=== PATIENT | female | born 1960 | race Caucasian/White ===

== ENCOUNTER 2017-10-31 13:44 | Emergency (ER) | payer MEDICARE ==
[~2017-10-31] VITALS: Ht 162.6 cm; Wt 128.2 kg
[~2017-10-31 13:44] MED LIST: ALPR0.5T6 PO; ATEN50TA41 PO; BETA15CR3 TP; CELE200C PO; CHOL2000 PO; CYCL-259 PO; DOCU100C33 PO; DULO60CA7 PO; ESZO3TAB28 PO; GLYB5TAB3 PO; HYDR-3307 PO; IBUP-1223 PO; INSU100C SQ-INSULIN; INSU100I29 SQ; LEVA15HF4 INH; LEVO125T5 PO; LIRA0.6P SQ-INSULIN; LISI-167 PO; LORA10TA75 PO; METF10002 PO; METH750T2 PO; METH750T87 PO; NIAC10002 PO; OXYM10TA19 PO; PANT40TA3 PO; POTA10TA PO; PRAV40TA2 PO; PREG50CA PO; RANI300C PO; VERA120T5 PO; ZOLP10TA PO; [UNRECOGNIZED DRUG - OTHER] PO; [UNRECOGNIZED DRUG - REMARK] PO; [UNRECOGNIZED DRUG - REMARK] PO
[2017-10-31] MEDS ORDERED: ALBUTEROL/IPRATROPIUM 2.5MG/0.5MG, 3 ML ONE (14:13)
[2017-10-31] MEDS ORDERED: SODIUM CHLORIDE FLUSH 10ML SYR IVF ONE (14:30)
[2017-10-31 15:06] LABS: BLOOD UREA NITROGEN 8 mg/dL (7-18)
[2017-10-31 15:08] LABS: HEMATOCRIT 40.4 % (34.6-47.8); HEMOGLOBIN 13.1 g/dL (11.7-16.4); WHITE BLOOD COUNT 10.4 x10^3/uL (3.4-10)
[2017-10-31 15:11] LABS: ASPARTATE AMINO TRANSFERASE 17 U/L (15-37)
[2017-10-31 15:12] LABS: IS PT STATUS REG ER OR PRE ER? YES
[2017-10-31] MEDS ORDERED: OMNIPAQUE 350 MG/ML, 100ML BOTTLE ONE (16:09)
[2017-10-31 17:30] VITALS: BP 140/69
== END 2017-10-31 17:32 | disposition home or self-care (01) ==
LOC: ED 15:30
DX: M54.6 Pain in thoracic spine (principal); R06.00 Dyspnea, unspecified; I10 Essential (primary) hypertension; E11.9 Type 2 diabetes mellitus without complications; M19.90 Unspecified osteoarthritis, unspecified site; E78.5 Hyperlipidemia, unspecified; E03.9 Hypothyroidism, unspecified; Z86.711 Personal history of pulmonary embolism; Z90.49 Acquired absence of other specified parts of digestive tract; Z90.710 Acquired absence of both cervix and uterus; Z88.8 Allergy status to other drugs, medicaments and biological substances; Z87.891 Personal history of nicotine dependence
CPT/HCPCS: 36415; 71010; 71275; 80053; 83605; 83880; 84443; 84484; 85025; 87040; 93005; 94640; 99285; Q9967

== ENCOUNTER 2018-02-20 18:07 | Emergency (ER) | payer MEDICARE ==
[~2018-02-20] VITALS: Ht 162.6 cm; Wt 130.0 kg
[2018-02-20] MEDS ORDERED: CHOL500050 PO (18:24)
[2018-02-20] MEDS ORDERED: CANA1TAB4 PO (18:24)
[2018-02-20] MEDS ORDERED: INSU100C5 SQ-INSULIN (18:24)
[2018-02-20] MEDS ORDERED: INSU100I32 SC (18:24)
[2018-02-20] MEDS ORDERED: NIAC500C3 PO (18:24)
[2018-02-20] MEDS ORDERED: ASPI-496 PO (18:29)
[2018-02-20] MEDS ORDERED: MULT-717 PO (18:29)
[2018-02-20] MEDS ORDERED: LEVO125T5 PO (18:29)
[2018-02-20] MEDS ORDERED: CLON0.1T PO (18:35)
[2018-02-20] MEDS ORDERED: IBUP-1223 PO (18:35)
[2018-02-20] MEDS ORDERED: CALC1TAB68 PO (18:35)
[2018-02-20] MEDS ORDERED: FLUT12AE INH (18:35)
[2018-02-20] MEDS ORDERED: CLON0.5T PO (18:35)
[2018-02-20] MEDS ORDERED: PROPOFOL 10 MG/ML, 20ML ONE ×2 (18:42→19:23)
[2018-02-20] MEDS ORDERED: PROPOFOL 10 MG/ML, 20ML IVPush ONE (19:00)
[2018-02-20] MEDS ORDERED: ONDANSETRON 2MG/ML, 2ML ONE (19:00)
[2018-02-20] MEDS ORDERED: ONDANSETRON 2MG/ML, 2ML IVPush ONE (19:00)
[2018-02-20 20:51] VITALS: BP 125/60
== END 2018-02-20 21:00 | disposition home or self-care (01) ==
LOC: ED 19:12
DX: T18.128A Food in esophagus causing other injury, initial encounter (principal); E11.9 Type 2 diabetes mellitus without complications; I10 Essential (primary) hypertension; E78.5 Hyperlipidemia, unspecified; E03.9 Hypothyroidism, unspecified; M19.90 Unspecified osteoarthritis, unspecified site; Z86.711 Personal history of pulmonary embolism; Z90.49 Acquired absence of other specified parts of digestive tract; Z90.710 Acquired absence of both cervix and uterus; Z87.891 Personal history of nicotine dependence; X58.XXXA Exposure to other specified factors, initial encounter; Y93.9 Activity, unspecified; Y92.89 Other specified places as the place of occurrence of the external cause; Y99.8 Other external cause status
CPT/HCPCS: 43247; 93005; 96374; 99152; 99153; 99285; J2405; 88305

== ENCOUNTER 2018-04-10 09:04 | Day surgery (SDC) | payer MEDICARE ==
[~2018-04-10] VITALS: Ht 162.6 cm; Wt 126.5 kg
[~2018-04-10 09:04] MED LIST changes: +ASPI-496 PO; +CALC1TAB68 PO; +CANA1TAB4 PO; +CHOL500050 PO; +CLON0.1T PO; +CLON0.5T PO; +FLUT12AE INH; +INSU100C5 SQ-INSULIN; +INSU100I32 SC; +MULT-717 PO; +NIAC500C3 PO
[2018-04-10 09:37] VITALS: BP 137/80
[2018-04-10] MEDS ORDERED: LACTATED RINGERS 1,000 ML IV SCH (09:42)
[2018-04-10] MEDS ORDERED: LIDOCAINE-MPF 1%, 2ML ONE (09:47)
[2018-04-10] MEDS ORDERED: LIDOCAINE-MPF 1%, 2ML INFIL ONE (10:00)
[2018-04-10] MEDS ORDERED: SOLI10TA2 PO (10:14)
[2018-04-10] MEDS ORDERED: OMEP40CA6 PO (10:14)
[2018-04-10 10:26] LABS: ALANINE AMINOTRANSFERASE 17 U/L (12-78); ALBUMIN 3.5 g/dL (3.4-5.0); ANION GAP 8 mmol/L (5-15); CALCIUM 8.6 mg/dL (8.5-10.1); CHLORIDE 107 mmol/L (98-107); CREATININE 0.59 mg/dL (0.55-1.02)
[2018-04-10 10:28] LABS: ALKALINE PHOSPHATASE 87 U/L (45-117); BILIRUBIN,TOTAL 0.4 mg/dL (0.2-1.0); TOTAL PROTEIN 6.9 g/dL (6.4-8.2)
[2018-04-10] MEDS ORDERED: METH750T87 PO (10:31)
[2018-04-10] MEDS ORDERED: MIDAZOLAM 1 MG/ML, 2ML ONE (10:34)
[2018-04-10] MEDS ORDERED: PROPOFOL 50 ML ONE (10:34)
[2018-04-10] MEDS ORDERED: EPHEDRINE 50 MG/ML, 1ML IVPush PRN (12:00)
[2018-04-10] MEDS ORDERED: ALBUTEROL/IPRATROPIUM 2.5MG/0.5MG, 3 ML NPPB PRN (12:00)
[2018-04-10] MEDS ORDERED: OXYcodone 5 MG/5 ML ORAL.SOL UDC PO PRN (12:00)
[2018-04-10] MEDS ORDERED: ONDANSETRON ODT 8 MG PO PRN (12:00)
[2018-04-10] MEDS ORDERED: METOPROLOL 1 MG/ML, 5ML IV PRN (12:00)
[2018-04-10] MEDS ORDERED: ALBUTEROL SULFATE 2.5 MG/3 ML NPPB PRN (12:00)
[2018-04-10] MEDS ORDERED: KETOROLAC 30 MG/1 ML IV PRN (12:00)
[2018-04-10] MEDS ORDERED: hydrALAzine 20 MG/ML, 1ML IV PRN (12:00)
[2018-04-10] MEDS ORDERED: PROMETHAZINE 25 MG/ML, 1ML IV PRN (12:00)
[2018-04-10] MEDS ORDERED: ACETAMINOPHEN 325 MG TABLET PO PRN (12:00)
[2018-04-10] MEDS ORDERED: HYDROcodone/APAP 7.5-325MG/15ML UDC PO PRN (12:00)
[2018-04-10] MEDS ORDERED: LABETALOL 5MG/ML, 20ML IV PRN (12:00)
[2018-04-10] MEDS ORDERED: FENTANYL PF 100 MCG/2ML IV PRN (12:00)
== END 2018-04-10 12:55 ==
LOC: OUT 09:04
PROVIDERS: ATTEND Internal Medicine Geriatric Medicine
DX: K29.50 Unspecified chronic gastritis without bleeding (principal); K31.89 Other diseases of stomach and duodenum; F41.9 Anxiety disorder, unspecified; E11.9 Type 2 diabetes mellitus without complications; I10 Essential (primary) hypertension; E03.9 Hypothyroidism, unspecified; F32.9 Major depressive disorder, single episode, unspecified; E89.0 Postprocedural hypothyroidism; Z87.39 Personal history of other diseases of the musculoskeletal system and connective tissue; Z87.01 Personal history of pneumonia (recurrent); Z98.890 Other specified postprocedural states; Z90.710 Acquired absence of both cervix and uterus
CPT/HCPCS: 36415; 43239; 43248; 80053; 82962; 88305; J2250; J2704; J3490; J7120

== ENCOUNTER → 2019-04-16 | Outpatient (CLI) | payer MEDICARE ==
[~2019-04-16] MED LIST changes: -CLON0.1T PO; +CLON0.1T22 PO; +OMEP40CA6 PO; +SOLI10TA2 PO
== END | disposition home or self-care (01) ==
LOC: RAD 10:56
PROVIDERS: ATTEND Internal Medicine Cardiovascular Disease
DX: R06.02 Shortness of breath (principal)
CPT/HCPCS: 71045; 78582; A9540; A9558

== ENCOUNTER → 2019-05-02 | Outpatient (CLI) | payer MEDICARE | END | disposition home or self-care (01) | LOC: CVU 11:10 | PROVIDERS: ATTEND Internal Medicine Cardiovascular Disease | DX: I08.1 Rheumatic disorders of both mitral and tricuspid valves (principal); I26.09 Other pulmonary embolism with acute cor pulmonale; I10 Essential (primary) hypertension | CPT/HCPCS: 0399T; 93306 ==

== ENCOUNTER 2020-03-28 09:39 | Observation (INO) | payer MEDICARE ==
[~2020-03-28] VITALS: Ht 162.6 cm; Wt 119.7 kg
[~2020-03-28 09:39] MED LIST changes: +APIX5TAB PO; +ATOR-2 PO; +CEPH-368 PO; +FLUT9.9S INH; +HYDR-3246 PO; -HYDR-3307 PO; +HYDR2TAB29 PO; +LEVA15HF5 IH; +OMEP40CA42 PO; -OMEP40CA6 PO; +TOPI50TA8 PO; +VERA120T13 PO; -VERA120T5 PO; +VITA100022 PO
[2020-03-28 11:02] LABS: BASOPHILS # (AUTO) 0.07 x10^3/uL (0-0.1); BASOPHILS % (AUTO) 1 % (0-1); EOSINOPHILS # (AUTO) 0.27 x10^3/uL (0-0.4); EOSINOPHILS % (AUTO) 3 % (1-7); LYMPHOCYTES # (AUTO) 2.94 x10^3/uL (1-3.4); LYMPHOCYTES % (AUTO) 33 % (22-44); MD NO; MEAN CORPUSCULAR HEMOGLOBIN 24.6 pg (27.0-34.8); MEAN CORPUSCULAR HGB CONC 31.2 g/dL (32.4-35.8); MEAN CORPUSCULAR VOLUME 78.6 fL (80-100); MEAN PLATELET VOLUME 7.1 fL (7.4-10.4); MONOCYTES # (AUTO) 0.63 x10^3/uL (0.2-0.8); MONOCYTES % (AUTO) 7 % (2-9); NEUTROPHILS # (AUTO) 5.04 x10^3/uL (1.8-6.8); NEUTROPHILS % (AUTO) 56 % (42-75); PLATELET COUNT 491 x10^3/uL (130-400); RED BLOOD COUNT 4.51 x10^6/uL (3.82-5.3); RED CELL DISTRIBUTION WIDTH 20.1 % (9.6-15.2)
[2020-03-28 11:18] LABS: ALANINE AMINOTRANSFERASE 17 U/L (12-78); ALBUMIN 3.4 g/dL (3.4-5.0); ANION GAP 6 mmol/L (5-15); CALCIUM 8.6 mg/dL (8.5-10.1); CHLORIDE 111 mmol/L (98-107)
[2020-03-28 11:20] LABS: ALKALINE PHOSPHATASE 107 U/L (45-117); BILIRUBIN,TOTAL 0.3 mg/dL (0.2-1.0); CREATININE 0.72 mg/dL (0.55-1.02); TOTAL PROTEIN 6.8 g/dL (6.4-8.2)
--- NOTE | 2020-03-28 11:30 | NUR ---
STEADY AMBULATION TO BATHROOM WITH WALKER
--- NOTE | 2020-03-28 12:18 | NUR ---
PT TO IMAGING
[2020-03-28] MEDS ORDERED: PROCHLORPERAZINE 5 MG/ML, 2ML IM ONE (13:00)
[2020-03-28] MEDS ORDERED: DIPHENHYDRAMINE 50 MG/ML, 1ML IV ONE (13:00)
[2020-03-28] MEDS ORDERED: PROCHLORPERAZINE 5 MG/ML, 2ML ONE (13:05)
[2020-03-28] MEDS ORDERED: DIPHENHYDRAMINE 50 MG/ML, 1ML ONE (13:05)
[2020-03-28] MEDS ORDERED: ACETAMINOPHEN 325 MG TABLET PO PRN (13:30)
[2020-03-28] MEDS ORDERED: hydrALAzine 20 MG/ML, 1ML IVPush PRN (13:30)
--- NOTE | 2020-03-28 13:32 | NUR ---
patient resting in ER [facility] with call light in reach. awaiting in patient bed and mri.
--- NOTE | 2020-03-28 13:32 | NUR ---
- [facility] phone - [phone] Cell - [phone]
--- NOTE | 2020-03-28 13:49 | NUR ---
Pt to MRI
--- NOTE | 2020-03-28 14:29 | NUR ---
Pt having anyi consult via [facility]
--- NOTE | 2020-03-28 16:27 | NUR ---
Patient resting in gurney. Call light with in reach. Awaiting in patient bed.
--- NOTE | 2020-03-28 18:04 | NUR ---
No change in status. Patient given food tray. Awaiting inpatient bed. Call light in reach.
--- NOTE | 2020-03-28 18:43 | NUR ---
Pt up to bathroom with stand by assist. Water given. Call light within reach.
--- NOTE | 2020-03-28 18:54 | NUR ---
REPORT FROM RADHA PRIEST, ASSUMING CARE OF PT AT THIS TIME
--- NOTE | 2020-03-28 19:30 | NUR ---
PT RESTING ON ALEIDA NARANJO AT THIS TIME SPEECH CLEAR AND APPROPRIATE.
--- NOTE | 2020-03-28 20:14 | NUR ---
PT RESTING ON ALEIDA NARANJO, PT ABLE TO CONTROL TV NO ASSIST REQUIRED AND SPEAKS CLEARLY. NO NEEDS AT THIS TIME
--- NOTE | 2020-03-28 20:57 | NUR ---
REPORT TO CEDRIC RN, PT READY FOR TRANSPORT TO HOSPITAL ROOM
[2020-03-28 22:47] VITALS: BP 143/72
[2020-03-29 01:06] VITALS: BP 102/51
[2020-03-29] MEDS ORDERED: PRAV40TA2 PO (04:29)
[2020-03-29] MEDS ORDERED: LIRA0.6P2 SQ (04:29)
[2020-03-29] MEDS ORDERED: VERA240T10 PO (04:29)
[2020-03-29] MEDS ORDERED: DULO60CA56 PO (04:29)
[2020-03-29] MEDS ORDERED: ERGO500018 PO (04:29)
[2020-03-29] MEDS ORDERED: ATEN50TA41 PO (04:29)
[2020-03-29] MEDS ORDERED: FLUT12AE INH (04:35)
[2020-03-29 05:21] LABS: ANION GAP 5 mmol/L (5-15); CALCIUM 8.6 mg/dL (8.5-10.1); CHLORIDE 109 mmol/L (98-107); CREATININE 0.58 mg/dL (0.55-1.02)
[2020-03-29 05:30] LABS: BASOPHILS # (AUTO) 0.06 x10^3/uL (0-0.1); BASOPHILS % (AUTO) 1 % (0-1); EOSINOPHILS # (AUTO) 0.42 x10^3/uL (0-0.4); EOSINOPHILS % (AUTO) 4 % (1-7); LYMPHOCYTES # (AUTO) 3.08 x10^3/uL (1-3.4); LYMPHOCYTES % (AUTO) 31 % (22-44); MD NO; MEAN CORPUSCULAR HEMOGLOBIN 24.2 pg (27.0-34.8); MEAN CORPUSCULAR HGB CONC 30.5 g/dL (32.4-35.8); MEAN CORPUSCULAR VOLUME 79.2 fL (80-100); MEAN PLATELET VOLUME 7.5 fL (7.4-10.4); MONOCYTES % (AUTO) 8 % (2-9); NEUTROPHILS # (AUTO) 5.74 x10^3/uL (1.8-6.8); NEUTROPHILS % (AUTO) 57 % (42-75); PLATELET COUNT 451 x10^3/uL (130-400); RED BLOOD COUNT 4.48 x10^6/uL (3.82-5.3); RED CELL DISTRIBUTION WIDTH 19.5 % (9.6-15.2)
[2020-03-29 07:06] VITALS: BP 98/63
[2020-03-29 12:30] VITALS: BP 133/76
[2020-03-29] MEDS: METHOCARBAMOL 750 MG TABLET PO SCH ×2 (16:59→20:04)
[2020-03-29] MEDS: PREGABALIN 25 MG CAPSULE PO SCH ×2 (16:59→22:34)
[2020-03-29 20:00] VITALS: BP 137/78
[2020-03-29] MEDS: ATORVASTATIN 80 MG TABLET PO SCH (20:04)
[2020-03-29] MEDS: PRAVASTATIN 40 MG TABLET PO SCH (20:05)
[2020-03-29] MEDS: APIXABAN 5 MG TABLET PO SCH (20:05)
[2020-03-29] MEDS: INSULIN DEGLUDEC SC SCH (20:05)
[2020-03-29] MEDS: ZOLPIDEM 5MG TABLET PO SCH (20:05)
[2020-03-29] MEDS: OMEPRAZOLE 20 MG CAPSULE.DR PO SCH (20:05)
[2020-03-29] MEDS: CALCIUM/VITAMIN D3 250-125 TABLET PO SCH (20:05)
[2020-03-29] MEDS: TEMPLATE NON-FORMULARY MED. (Liraglutide (Victoza 2-Pak) 1.8 MG) SC SCH (20:06)
[2020-03-29] MEDS: FLUTICASONE NASAL SPRAY 16GM NAS SCH (22:34)
[2020-03-30 01:06] VITALS: BP 144/71
[2020-03-30 04:47] LABS: BASOPHILS # (AUTO) 0.05 x10^3/uL (0-0.1); BASOPHILS % (AUTO) 1 % (0-1); EOSINOPHILS # (AUTO) 0.31 x10^3/uL (0-0.4); EOSINOPHILS % (AUTO) 3 % (1-7); LYMPHOCYTES # (AUTO) 3.41 x10^3/uL (1-3.4); LYMPHOCYTES % (AUTO) 32 % (22-44); MD NO; MEAN CORPUSCULAR HEMOGLOBIN 24.4 pg (27.0-34.8); MEAN CORPUSCULAR HGB CONC 31.2 g/dL (32.4-35.8); MEAN CORPUSCULAR VOLUME 78.4 fL (80-100); MEAN PLATELET VOLUME 7.3 fL (7.4-10.4); MONOCYTES # (AUTO) 0.72 x10^3/uL (0.2-0.8); MONOCYTES % (AUTO) 7 % (2-9); NEUTROPHILS # (AUTO) 6.03 x10^3/uL (1.8-6.8); NEUTROPHILS % (AUTO) 57 % (42-75); PLATELET COUNT 469 x10^3/uL (130-400); RED BLOOD COUNT 4.72 x10^6/uL (3.82-5.3); RED CELL DISTRIBUTION WIDTH 19.9 % (9.6-15.2)
[2020-03-30 04:54] LABS: ANION GAP 8 mmol/L (5-15); CALCIUM 8.8 mg/dL (8.5-10.1); CHLORIDE 107 mmol/L (98-107); CREATININE 0.59 mg/dL (0.55-1.02)
[2020-03-30 07:53] VITALS: BP 138/78
[2020-03-30] MEDS: FLUTICASONE NASAL SPRAY 16GM NAS SCH ×2 (08:58→20:33)
[2020-03-30] MEDS: LEVOTHYROXINE 125 MCG TABLET PO SCH (08:59)
[2020-03-30] MEDS: PREGABALIN 25 MG CAPSULE PO SCH ×3 (09:00→20:34)
[2020-03-30] MEDS: VITAMIN E 400 UNITS CAPSULE PO SCH (09:00)
[2020-03-30] MEDS: LISINOPRIL 10 MG TABLET PO SCH (09:00)
[2020-03-30] MEDS: VERAPAMIL ER 240MG TABLET.ER PO SCH (09:00)
[2020-03-30] MEDS: ATENOLOL 50 MG TABLET PO SCH (09:01)
[2020-03-30] MEDS: POTASSIUM CHLORIDE 10 MEQ TABLET.ER PO SCH (09:01)
[2020-03-30] MEDS: DULOXETINE 30 MG CAPSULE.DR PO SCH (09:01)
[2020-03-30] MEDS: CALCIUM/VITAMIN D3 250-125 TABLET PO SCH ×2 (09:01→20:34)
[2020-03-30] MEDS: MULTIVITAMINS/MINERALS TABLET PO SCH (09:01)
[2020-03-30] MEDS: APIXABAN 5 MG TABLET PO SCH ×2 (09:02→20:33)
[2020-03-30] MEDS: OMEPRAZOLE 20 MG CAPSULE.DR PO SCH ×2 (09:02→20:33)
[2020-03-30] MEDS: METHOCARBAMOL 750 MG TABLET PO SCH ×3 (09:02→20:33)
[2020-03-30 12:32] VITALS: BP 112/58
[2020-03-30] MEDS: ATORVASTATIN 80 MG TABLET PO SCH (20:33)
[2020-03-30] MEDS: PRAVASTATIN 40 MG TABLET PO SCH (20:33)
[2020-03-30] MEDS: ZOLPIDEM 5MG TABLET PO SCH (20:34)
[2020-03-30 20:39] VITALS: BP 116/54
[2020-03-30] MEDS: TEMPLATE NON-FORMULARY MED. (Liraglutide (Victoza 2-Pak) 1.8 MG) SC SCH (20:48)
[2020-03-30] MEDS: INSULIN DEGLUDEC SC SCH (20:48)
[2020-03-31 04:26] VITALS: BP 130/61
[2020-03-31 05:15] LABS: BASOPHILS # (AUTO) 0.06 x10^3/uL (0-0.1); BASOPHILS % (AUTO) 1 % (0-1); EOSINOPHILS # (AUTO) 0.43 x10^3/uL (0-0.4); EOSINOPHILS % (AUTO) 4 % (1-7); LYMPHOCYTES # (AUTO) 3.64 x10^3/uL (1-3.4); LYMPHOCYTES % (AUTO) 36 % (22-44); MD NO; MEAN CORPUSCULAR HEMOGLOBIN 23.8 pg (27.0-34.8); MEAN CORPUSCULAR HGB CONC 30.6 g/dL (32.4-35.8); MEAN CORPUSCULAR VOLUME 77.6 fL (80-100); MEAN PLATELET VOLUME 7.4 fL (7.4-10.4); MONOCYTES # (AUTO) 0.79 x10^3/uL (0.2-0.8); MONOCYTES % (AUTO) 8 % (2-9); NEUTROPHILS # (AUTO) 5.19 x10^3/uL (1.8-6.8); NEUTROPHILS % (AUTO) 51 % (42-75); PLATELET COUNT 464 x10^3/uL (130-400); RED BLOOD COUNT 4.63 x10^6/uL (3.82-5.3); RED CELL DISTRIBUTION WIDTH 19.4 % (9.6-15.2)
[2020-03-31 05:26] LABS: ANION GAP 7 mmol/L (5-15); CALCIUM 8.6 mg/dL (8.5-10.1); CHLORIDE 107 mmol/L (98-107)
[2020-03-31] MEDS: DULOXETINE 30 MG CAPSULE.DR PO SCH (08:33)
[2020-03-31] MEDS: MULTIVITAMINS/MINERALS TABLET PO SCH (08:33)
[2020-03-31] MEDS: OMEPRAZOLE 20 MG CAPSULE.DR PO SCH (08:34)
[2020-03-31] MEDS: LISINOPRIL 10 MG TABLET PO SCH (08:34)
[2020-03-31] MEDS: POTASSIUM CHLORIDE 10 MEQ TABLET.ER PO SCH (08:35)
[2020-03-31] MEDS: VITAMIN E 400 UNITS CAPSULE PO SCH (08:35)
[2020-03-31] MEDS: METHOCARBAMOL 750 MG TABLET PO SCH (08:36)
[2020-03-31] MEDS: VERAPAMIL ER 240MG TABLET.ER PO SCH (08:36)
[2020-03-31] MEDS: ATENOLOL 50 MG TABLET PO SCH (08:36)
[2020-03-31] MEDS: APIXABAN 5 MG TABLET PO SCH (08:36)
[2020-03-31] MEDS: CALCIUM/VITAMIN D3 250-125 TABLET PO SCH (08:36)
[2020-03-31] MEDS: FLUTICASONE NASAL SPRAY 16GM NAS SCH (08:37)
[2020-03-31] MEDS: PREGABALIN 25 MG CAPSULE PO SCH (08:37)
[2020-03-31] MEDS: LEVOTHYROXINE 125 MCG TABLET PO SCH (08:43)
[2020-03-31 09:11] VITALS: BP 130/74
[2020-03-31 13:54] VITALS: BP 134/76
== END 2020-03-31 14:50 | disposition home or self-care (01) ==
LOC: ED 10:27 → SUATTDRO 12:48 → INTOOBSV 13:34 → EDIP 13:34 → 4NW 22:52
PROVIDERS: ADMIT Hospitalist; ATTEND Hospitalist
DX: Z03.818 Encounter for observation for suspected exposure to other biological agents ruled out (principal); R51 Headache; R47.81 Slurred speech; Q21.1 Atrial septal defect; J96.10 Chronic respiratory failure, unspecified whether with hypoxia or hypercapnia; G47.33 Obstructive sleep apnea (adult) (pediatric); G89.29 Other chronic pain; M54.5 Low back pain; M25.569 Pain in unspecified knee; I10 Essential (primary) hypertension; E11.9 Type 2 diabetes mellitus without complications; E78.5 Hyperlipidemia, unspecified; E03.9 Hypothyroidism, unspecified; I27.20 Pulmonary hypertension, unspecified; R47.1 Dysarthria and anarthria; J45.909 Unspecified asthma, uncomplicated; R13.10 Dysphagia, unspecified; F11.20 Opioid dependence, uncomplicated; F32.9 Major depressive disorder, single episode, unspecified; Z86.73 Personal history of transient ischemic attack (TIA), and cerebral infarction without residual deficits; Z60.0 Problems of adjustment to life-cycle transitions; Z86.718 Personal history of other venous thrombosis and embolism; Z86.711 Personal history of pulmonary embolism; Z90.13 Acquired absence of bilateral breasts and nipples; Z79.899 Other long term (current) drug therapy; Z90.710 Acquired absence of both cervix and uterus; Z87.891 Personal history of nicotine dependence
CPT/HCPCS: 36415; 70450; 70551; 71045; 80048; 80053; 82962; 84443; 85025; 92523; 92526; 93005; 93308; 93321; 93325; 93880; 96372; 96374; 97161; 97166; 99285; G0378; J0780; J1200; U0001

== ENCOUNTER 2020-04-28 23:50 | Emergency (ER) | payer MEDICARE ==
[~2020-04-28] VITALS: Ht 167.6 cm; Wt 120.0 kg
[~2020-04-28 23:50] MED LIST changes: +DULO60CA56 PO; +ERGO500018 PO; +LIRA0.6P2 SQ; +VERA240T10 PO
[2020-04-28 23:57] VITALS: BP 120/57
--- NOTE | 2020-04-29 00:25 | NUR ---
PT RESTING DENIES CURRENT NEEDS. WAITING RADIOLOGY READS.
--- NOTE | 2020-04-29 00:57 | NUR ---
TASK RN: AIR STRONG APPLIED. +[facility] [address] DC EDUCATION PROVIDED, PT DEMONSTRATES UNDERSTANDING. PT TRANSFERED SELF TO WHEEL CHAIR. WHEELED TO DC WITH RN
== END 2020-04-29 00:58 | disposition home or self-care (01) ==
LOC: ED 04-29 00:40
DX: S93.492A Sprain of other ligament of left ankle, initial encounter (principal); I10 Essential (primary) hypertension; E78.5 Hyperlipidemia, unspecified; E11.9 Type 2 diabetes mellitus without complications; Z90.710 Acquired absence of both cervix and uterus; Z90.49 Acquired absence of other specified parts of digestive tract; Z90.89 Acquired absence of other organs; Z87.891 Personal history of nicotine dependence; Z86.39 Personal history of other endocrine, nutritional and metabolic disease; W18.39XA Other fall on same level, initial encounter; Y93.89 Activity, other specified; Y92.098 Other place in other non-institutional residence as the place of occurrence of the external cause; Y99.8 Other external cause status
CPT/HCPCS: 99284

== ENCOUNTER 2020-09-29 08:45 | Emergency (ER) | payer MEDICARE, OTHER ==
[~2020-09-29] VITALS: Ht 162.6 cm; Wt 126.1 kg
[~2020-09-29 08:45] MED LIST changes: +ASPI81TA45 PO; +CALC-534 PO; +CANA1TAB8 PO; +ERGO500017 PO; +MULTIVITAMIN PO; +NIAC100035 PO
[2020-09-29] MEDS ORDERED: ONDANSETRON 2MG/ML, 2ML ONE (09:22)
[2020-09-29] MEDS ORDERED: MORPHINE SULFATE 4 MG/ML, 1ML ONE ×2 (09:22→11:59)
[2020-09-29] MEDS: MORPHINE SULFATE 4 MG/ML, 1ML IVPush PRN ×2 (09:26→12:04)
[2020-09-29] MEDS ORDERED: PLEASE ENTER HEIGHT AND WEIGHT MC SCH (09:30)
[2020-09-29 09:33] LABS: ALBUMIN 3.4 g/dL (3.4-5.0); ANION GAP 5 mmol/L (5-15); CALCIUM 8.8 mg/dL (8.5-10.1); CHLORIDE 109 mmol/L (98-107)
[2020-09-29 09:37] LABS: ALANINE AMINOTRANSFERASE 14 U/L (12-78); ALKALINE PHOSPHATASE 91 U/L (45-117); BILIRUBIN,TOTAL 0.3 mg/dL (0.2-1.0); CREATININE 0.73 mg/dL (0.55-1.02); TOTAL PROTEIN 6.8 g/dL (6.4-8.2)
--- NOTE | 2020-09-29 09:45 | NUR ---
PT ASSISTED UP TO BSC AND BTB. PT TOLERATED WELL.
[2020-09-29 09:58] LABS: BASOPHILS % (AUTO) 0 % (0-1); EOSINOPHILS % (AUTO) 3 % (1-7); LYMPHOCYTES % (AUTO) 29 % (22-44); MEAN CORPUSCULAR HEMOGLOBIN 24.6 pg (27.0-34.8); MEAN CORPUSCULAR HGB CONC 30.5 g/dL (32.4-35.8); MEAN PLATELET VOLUME 7.1 fL (7.4-10.4); MONOCYTES % (AUTO) 6 % (2-9); NEUTROPHILS % (AUTO) 62 % (42-75); PLATELET COUNT 474 x10^3/uL (130-400); RED BLOOD COUNT 4.38 x10^6/uL (3.82-5.3); RED CELL DISTRIBUTION WIDTH 18.1 % (9.6-15.2)
[2020-09-29] MEDS ORDERED: ONDANSETRON 2MG/ML, 2ML IVPush ONE (10:00)
[2020-09-29 10:01] LABS: MD NO
[2020-09-29] MEDS ORDERED: KETOROLAC 30 MG/1 ML ONE (10:30)
[2020-09-29] MEDS ORDERED: KETOROLAC 30 MG/1 ML IVPush ONE (10:30)
[2020-09-29 10:45] LABS: MICROSCOPIC NOT IND
[2020-09-29] MEDS ORDERED: HYDROmorphone 1 MG/ML, 1ML INJ ONE (13:05)
[2020-09-29 13:36] VITALS: BP 135/71
[2020-09-29] MEDS ORDERED: HYDROmorphone 1 MG/ML, 1ML INJ IV ONE (14:00)
== END 2020-09-29 15:24 | disposition home or self-care (01) ==
LOC: ED 10:14
DX: M47.816 Spondylosis without myelopathy or radiculopathy, lumbar region (principal); I10 Essential (primary) hypertension; E11.9 Type 2 diabetes mellitus without complications; E03.9 Hypothyroidism, unspecified; Z90.49 Acquired absence of other specified parts of digestive tract; Z90.89 Acquired absence of other organs; Z90.710 Acquired absence of both cervix and uterus; Z88.6 Allergy status to analgesic agent; Z88.8 Allergy status to other drugs, medicaments and biological substances; Z88.3 Allergy status to other anti-infective agents
CPT/HCPCS: 36415; 72148; 74176; 80053; 81003; 83690; 85025; 96374; 96375; 96376; 99285; J1170; J1885; J2270; J2405